=== PATIENT | male | born 1965 | race African-American/Black ===

== ENCOUNTER 2020-04-13 22:47 | Emergency (ER) | payer MEDICAID ==
[~2020-04-13] VITALS: Ht 188 cm; Wt 93.0 kg
[2020-04-13] MEDS ORDERED: BACITRACIN ZINC OINT UDPKT TOP ONE (23:00)
[2020-04-13] MEDS ORDERED: IBUPROFEN 600MG TABLET PO ONE (23:00)
[2020-04-13] MEDS ORDERED: TETANUS, DIPHTHERIA, PERTUSSIS VAC/PF 0.5ML (>7YR OLD) IM ONE (23:00)
[2020-04-13] MEDS ORDERED: LIDOCAINE HCL/PF 1% 10 MG/ML 5ML VIAL IJ ONE (23:00)
[2020-04-14] MEDS ORDERED: CEPHALEXIN 250MG CAPSULE PO ONE
[2020-04-14] MEDS ORDERED: SULFAMETHOXAZOLE/TRIMETHOPRIM 800/160MG TABLET PO ONE
[2020-04-14] MEDS ORDERED: HYDROCODONE/ACETAMINOPHEN 5/325MG TABLET PO ONE
[2020-04-14 00:19] VITALS: BP 117/74
== END 2020-04-14 00:20 | disposition home or self-care (01) ==
LOC: ER 22:47
DX: L03.113 Cellulitis of right upper limb (principal); I10 Essential (primary) hypertension
CPT/HCPCS: 26010; 90715; 99284; J3490

== ENCOUNTER 2020-10-10 07:23 | Emergency (ER) | payer MEDICAID ==
[~2020-10-10] VITALS: Ht 188 cm; Wt 84.0 kg
[2020-10-10] MEDS ORDERED: BALANCED SALT IRRIG SOLN 15ML IR ONE (08:15)
[2020-10-10] MEDS ORDERED: FLUORESCEIN SODIUM 1MG/STRIP LEFTEYE ONE (08:15)
[2020-10-10] MEDS ORDERED: TETRACAINE 0.5% OPHTH DROPS 4ML LEFTEYE ONE (08:15)
[2020-10-10] MEDS ORDERED: ERYT1OIN6 LEFTEYE (08:43)
[2020-10-10] MEDS ORDERED: DICL2.5D8 LEFTEYE (08:43)
[2020-10-10] MEDS ORDERED: CYCL15DR11 LEFTEYE (08:43)
[2020-10-10 09:17] VITALS: BP 135/85
== END 2020-10-10 09:19 | disposition home or self-care (01) ==
LOC: ER 07:28
DX: S05.02XA Injury of conjunctiva and corneal abrasion without foreign body, left eye, initial encounter (principal); I10 Essential (primary) hypertension; X58.XXXA Exposure to other specified factors, initial encounter; Y93.89 Activity, other specified; Y92.89 Other specified places as the place of occurrence of the external cause; Y99.8 Other external cause status; Z98.890 Other specified postprocedural states; Z79.899 Other long term (current) drug therapy; Z88.5 Allergy status to narcotic agent
CPT/HCPCS: 99283

== ENCOUNTER 2020-12-01 19:31 | Emergency (ER) | payer MEDICAID, MEDICARE ==
[~2020-12-01] VITALS: Ht 185.4 cm; Wt 76.6 kg
[~2020-12-01 19:31] MED LIST: CYCL15DR11 LEFTEYE; DICL2.5D8 LEFTEYE; ERYT1OIN6 LEFTEYE
[2020-12-01] MEDS ORDERED: NAPR-1176 MT (22:43)
[2020-12-01] MEDS ORDERED: CYCLOBENZAPRINE 10MG TABLET PO ONE (22:45)
[2020-12-01] MEDS ORDERED: KETOROLAC 30MG/ML VIAL IM ONE (22:45)
[2020-12-01 23:00] VITALS: BP 130/80
== END 2020-12-01 23:24 | disposition home or self-care (01) ==
LOC: ER 19:31
DX: M54.5 Low back pain (principal); I10 Essential (primary) hypertension; Z91.041 Radiographic dye allergy status; Z91.013 Allergy to seafood; X50.0XXA Overexertion from strenuous movement or load, initial encounter; Y93.89 Activity, other specified; Y92.018 Other place in single-family (private) house as the place of occurrence of the external cause
CPT/HCPCS: 96372; 99283; J1885

== ENCOUNTER 2024-08-17 14:34 | Emergency (ER) | payer MEDICAID, OTHER ==
[~2024-08-17] VITALS: Ht 177.8 cm; Wt 80.0 kg
[~2024-08-17 14:34] MED LIST changes: +ALBU18HF2 IH; +AMLO10TA80 PO; +NAPR-1176 MT
[2024-08-17 14:41] VITALS: O2SAT 98
[2024-08-17 15:15] LABS: BASOPHILS % 0.7 % (0.0-2.0); EOSINOPHILS % 0.1 % (0.0-5.0); HEMATOCRIT. 38.7 % (42.0-52.0); MEAN CORPUSCULAR HEMOGLOBIN 30.7 pg (28.0-32.0); MEAN CORPUSCULAR HGB CONC 33.7 g/dL (31.0-37.0); MEAN CORPUSCULAR VOLUME 90.9 fL (80.0-94.0); MEAN PLATELET VOLUME 7.4 fl (7.4-10.4); MONOCYTES % 10.1 % (2.0-8.0); NEUTROPHILS % 72.1 % (40.0-76.0); PLATELET 236 x1000/uL (130-400); RED BLOOD CELL COUNT 4.26 mill/uL (4.7-6.1); RED CELL DISTRIBUTION WIDTH 13.6 % (11.6-14.6); WHITE BLOOD COUNT 6.6 x1000/uL (4.5-11.0)
[2024-08-17 15:32] LABS: CHLORIDE 98 mEq/L (98-107); POTASSIUM 3.9 mEq/L (3.5-5.1); SODIUM 130 mEq/L (136-145)
[2024-08-17 15:33] LABS: CARBON DIOXIDE 21 mEq/L (21-32)
[2024-08-17 15:38] LABS: CREATININE 1.2 mg/dL (0.6-1.3); GLUCOSE 99 mg/dL (70-105); UREA NITROGEN BLOOD 22 mg/dL (9-23)
[2024-08-17 15:40] LABS: TROPONIN I HIGH SENSITIVITY 36 ng/L (3.0-53)
[2024-08-17 16:34] LABS: ACETAMINOPHEN < 2 ug/mL (10-30)
[2024-08-17 17:00] LABS: ETHANOL BLOOD < 10 mg/dL (<10)
[2024-08-17 17:07] LABS: *AMPHETAMINES SCREEN URINE NEGATIVE (NEGATIVE); *BARBITURATES SCREEN URINE NEGATIVE (NEGATIVE); *BENZODIAZEPINES SCREEN URINE NEGATIVE (NEGATIVE); *COCAINE SCREEN URINE PRESUMPTIVE POSITIVE (NEGATIVE); METHADONE URINE SCREEN NEGATIVE (NEGATIVE); OPIATES URINE SCREEN NEGATIVE (NEGATIVE)
[2024-08-17 17:08] LABS: CANNABINOID URINE SCREEN PRESUMPTIVE POSITIVE (NEGATIVE); ECSTASY MDMA SCREEN URINE NEGATIVE (NEGATIVE); PHENCYCLIDINE URINE SCREEN NEGATIVE (NEGATIVE)
[2024-08-17 17:45] LABS: TROPONIN I HIGH SENSITIVITY 32 ng/L (3.0-53)
[2024-08-18 10:20] VITALS: BP 116/72; PULSE 62; RESP 16; TEMP 36.9; O2SAT 99
== END 2024-08-18 10:21 | disposition home or self-care (01) ==
LOC: ER 14:42
DX: R45.851 Suicidal ideations (principal); F31.9 Bipolar disorder, unspecified; F41.9 Anxiety disorder, unspecified; I10 Essential (primary) hypertension; J44.9 Chronic obstructive pulmonary disease, unspecified; M19.90 Unspecified osteoarthritis, unspecified site; Z59.00 Homelessness unspecified; Z79.1 Long term (current) use of non-steroidal anti-inflammatories (NSAID); Z96.659 Presence of unspecified artificial knee joint; Z79.899 Other long term (current) drug therapy; Z91.041 Radiographic dye allergy status; Z88.8 Allergy status to other drugs, medicaments and biological substances; Z91.018 Allergy to other foods
CPT/HCPCS: 80305; 80048; 80307; 80329; 80320; 83880; 85025; 84484; 36415; 71045; 93005; 99285; Z7610 ×2; A4606; G0480